=== PATIENT | male | born 1960 | race Asian ===

== ENCOUNTER 2018-02-10 06:27 | Day surgery (SDC) | payer OTHER ==
[~2018-02-10] VITALS: Ht 157.5 cm; Wt 52.6 kg
[2018-02-10] MEDS ORDERED: LIDOCAINE 2% 100 MG/5 ML UJET TP ONE (08:03)
[2018-02-10] MEDS ORDERED: KETOROLAC 30 MG/ML VIAL ONE (08:18)
== END 2018-02-10 09:23 | disposition home or self-care (01) ==
LOC: MDS 06:27 → MMU 06:27 → MDS 09:23
PROVIDERS: ATTEND Internal Medicine Gastroenterology
DX: D12.1 Benign neoplasm of appendix (principal)
CPT/HCPCS: 45385; J1885